=== PATIENT | female | born 1940 | race Caucasian/White ===

== ENCOUNTER 2017-09-28 22:47 | Emergency (ER) | payer MEDICARE ==
[~2017-09-28] VITALS: Ht 165.1 cm; Wt 69.0 kg
[~2017-09-28 22:47] MED LIST: ASPI81EC; ATEN50; ATOR10; HYDCHL12.5; PARO20 PO
[2017-09-28] MEDS ORDERED: LISI20 PO (22:59)
[2017-09-28] MEDS ORDERED: Norvasc2.5 MG PO (23:00)
[2017-09-28] MEDS ORDERED: HYDCHL12.5 PO (23:00)
== END 2017-09-29 01:15 | disposition home or self-care (01) ==
LOC: ER 22:47
DX: I10 Essential (primary) hypertension (principal); F41.9 Anxiety disorder, unspecified; Z88.1 Allergy status to other antibiotic agents; Z79.899 Other long term (current) drug therapy; Z90.49 Acquired absence of other specified parts of digestive tract
CPT/HCPCS: 93005; 93010; 96372; 99283; J1885

== ENCOUNTER 2020-03-13 06:48 | Day surgery (SDC) | payer MEDICARE ==
[~2020-03-13] VITALS: Ht 165.1 cm; Wt 67.9 kg
[~2020-03-13 06:48] MED LIST changes: +ALEN70 PO; +Ambien5 MG; +Aspir 8181 MG PO; +HYDCHL12.5 PO; +LISI20 PO; +Norvasc2.5 MG PO
[2020-03-13] MEDS ORDERED: SPIRONOLACTONE1 EACH (07:21)
== END 2020-03-13 09:09 | disposition home or self-care (01) ==
LOC: ORSCSDS 06:48
PROVIDERS: Internal Medicine Gastroenterology
PROC: 0DBH8ZX Excision of Cecum, Via Natural or Artificial Opening Endoscopic, Diagnostic (ICD-10-PCS; principal; 2020-03-13 08:00)
DX: R19.5 Other fecal abnormalities (principal); D12.0 Benign neoplasm of cecum; K59.00 Constipation, unspecified; K57.30 Diverticulosis of large intestine without perforation or abscess without bleeding; I10 Essential (primary) hypertension; Z79.899 Other long term (current) drug therapy; Z79.82 Long term (current) use of aspirin
CPT/HCPCS: 88305; J0461; J2405; J2704; J7120

== ENCOUNTER → 2020-09-12 | Outpatient (CLI) | payer MEDICARE ==
[~2020-09-12] MED LIST changes: +SPIRONOLACTONE1 EACH
== END | disposition home or self-care (01) ==
LOC: LAB 19:12 → LAB SHORT 19:12
DX: R30.0 Dysuria (principal)
CPT/HCPCS: 87077; 87086; 87186

== ENCOUNTER → 2022-11-23 | Outpatient (CLI) | payer MEDICARE ==
[~2022-11-23] MED LIST changes: +AMLO10 PO; +Crestor20 MG PO; +ELIQUIS5 M2 PO; +ESTRADIOL42.5 GM VAG; +LISI10 PO
== END ==
LOC: LAB SHORT 08:15 → LAB 08:15
DX: R30.0 Dysuria (principal)
CPT/HCPCS: 87077; 87086; 87186

== ENCOUNTER → 2024-10-06 | Outpatient (CLI) | payer OTHER ==
[~2024-10-06] MED LIST changes: +CATS CLAW PO; +D MANNOSE; +GLUCHON PO; +MERIBIN5 MG PO; +METO25 PO; +NORVASC2.5 MG PO; +VITAMIN D310 MC4 PO; +Vitamin B Comple1 EA PO
== END | disposition home or self-care (01) ==
LOC: LAB 13:32 → LAB SHORT 13:32
DX: R30.0 Dysuria (principal); R35.0 Frequency of micturition
CPT/HCPCS: 87086

== ENCOUNTER 2024-12-17 08:56 | Emergency (ER) | payer OTHER ==
[~2024-12-17] VITALS: Ht 165.1 cm; Wt 70.3 kg
[2024-12-17] MEDS ORDERED: ELIQUIS5 M3 PO (10:45)
[2024-12-17 11:03] VITALS: BP 123/82
== END 2024-12-17 11:56 | disposition home or self-care (01) ==
LOC: ER 08:56
DX: S70.11XA Contusion of right thigh, initial encounter (principal); I10 Essential (primary) hypertension; W18.30XA Fall on same level, unspecified, initial encounter; Z79.899 Other long term (current) drug therapy; Z88.8 Allergy status to other drugs, medicaments and biological substances
CPT/HCPCS: 70450; 72170; 73552; 76882; 99284-25

== ENCOUNTER → 2025-04-04 | Outpatient (CLI) | payer OTHER ==
[~2025-04-04] MED LIST changes: +ELIQUIS5 M3 PO
[2025-04-04 10:28] LABS: Source, Urine Clean Catch
[2025-04-04 13:20] LABS: Glucose Qualitative, Urine Neg (Neg); Ketones, Urine Neg (Neg); Leukocyte Esterase, Urine 3+ (Neg); Protein, Urine 2+ (Neg); Specific Gravity, Urine 1.010 (1.003-1.022); Urobilinogen, Urine 2+ (Normal)
[2025-04-04 13:50] LABS: Bilirubin, Urine 2+ (Neg); Color, Urine Amber (P-Yellow)
[2025-04-04 13:51] LABS: White Blood Cells, Urine TNTC /hpf (0-5)
== END | disposition home or self-care (01) ==
LOC: LAB SHORT 10:25 → LAB 10:25
PROVIDERS: Internal Medicine
DX: R30.0 Dysuria (principal)
CPT/HCPCS: 81001; 87077; 87086; 87186; 87335